=== PATIENT | female | born 1990 | race Caucasian/White ===

== ENCOUNTER 2017-03-07 15:31 | Emergency (ER) | payer SELFPAY ==
[2017-03-07 15:42] VITALS: BP 141/84
--- NOTE | 2017-03-07 16:49 | Emergency Department Report ---
ED Female HPI - General Chief complaint: Urogenital-Female Stated complaint: VAGINAL DISCOMFORT Time Seen by Provider: 03/07/17 16:48 Source: patient Mode of arrival: Ambulatory Limitations: No Limitations - History of Present Illness Initial comments: Patient reports she is having vaginal discomfort for 2-3 days. She says she has a foul-smelling odor and wants to be checked for STD. vaginal pain externally is 6 out of 10 on and off. She has concern for STD due to on safe sex. Denies abdominal or back pain. Denies any urinary burning frequency or urgency. No fever or chills or nausea or vomiting. Menstrual period was 2016. Pt has no past medical history of surgery or medical problems. MD Complaint: vaginal discharge, possible STD, other (External vaginal pain) Onset/Timin -: days(s) Location: labia Radiation: non-radiating Severity: moderate Severity scale (0 -10): 6 Quality: dull Consistency: intermittent Improves with: none Worsens with: none Are you Now?: No Last Menstrual Period: 02/21/17 EDC: 11/28/17 Associated Symptoms: vaginal discharge, other (vaginal pain). denies: vaginal bleeding, abdominal pain, nausea/vomiting, headaches, loss of appetite, dysuria , hematuria, rash, shortness of breath, syncope, weakness - Related Data Sexually active: Yes Previous Rx's Medication Instructions Recorded Last Taken Type Nitrofurantoin [place]/M-Cryst 100 mg PO Q12HR #14 capsule 03/07/17 Unknown Rx [Macrobid CAP] metroNIDAZOLE [Flagyl] 500 mg PO Q12HR #14 tab 03/07/17 Unknown Rx Allergies Allergy/AdvReac Type Severity Reaction Status Date / Time No Known Allergies Allergy Unverified 03/07/17 15:38 ED Review of Systems ROS: Stated complaint: VAGINAL DISCOMFORT Other details as noted in HPI Comment: All other systems reviewed and negative Constitutional: denies: chills, fever ENT: denies: throat pain Respiratory: no symptoms reported Cardiovascular: denies: chest pain, palpitations, dyspnea on exertion, orthopnea Gastrointestinal: denies: abdominal pain, nausea, vomiting, diarrhea Genitourinary: discharge, other (External vaginal pain). denies: urgency, dysuria, frequency, hematuria, abnormal menses, dyspareunia Musculoskeletal: denies: back pain, arthralgia Skin: denies: rash Neurological: denies: headache, weakness, numbness, paresthesias, confusion, abnormal gait, other ED Past Medical Hx - Past Medical History Previous Medical History?: No Additional medical history: Vaginal delivery x 2 - Surgical History Past Surgical History?: No - Family History Family history: no significant - Social History Smoking Status: Never Smoker Substance Use Type: Alcohol, Non Opiate Pain - Medications Home Medications: Home Medications Medication Instructions Recorded Confirmed Last Taken Type Nitrofurantoin [place]/M-Cryst 100 mg PO Q12HR #14 capsule 03/07/17 Unknown Rx [Macrobid CAP] metroNIDAZOLE [Flagyl] 500 mg PO Q12HR #14 tab 03/07/17 Unknown Rx ED Physical Exam - General Limitations: No Limitations General appearance: alert, in no apparent distress - Head Head exam: Present: atraumatic, normocephalic, normal inspection - Eye Eye exam: Present: normal appearance, PERRL, EOMI. Absent: periorbital swelling , periorbital tenderness Pupils: Present: normal accommodation - ENT ENT exam: Present: normal exam, normal orophraynx, mucous membranes moist, TM's normal bilaterally, normal external ear exam - Neck Neck exam: Present: normal inspection, full ROM. Absent: tenderness, meningismus, lymphadenopathy - Expanded Neck Exam Expanded Neck exam: Absent: tenderness, midline deformity, anterior neck swelling, tracheal deviation - Cardiovascular Cardiovascular Exam: Present: regular rate, normal rhythm, normal heart sounds - GI/Abdominal GI/Abdominal exam: Present: soft, normal bowel sounds. Absent: distended, tenderness, guarding, rebound, rigid - External exam: Present: normal external exam. Absent: erythema, swelling, lesions, lacerations, ecchymosis, bleeding Speculum exam: Present: normal speculum exam, vaginal discharge, cervical discharge. Absent: erythema, vaginal bleeding, foreign body, tissue, laceration Bi-manual exam: Present: normal bi-manual exam. Absent: cervical motion tendernes, adnexal tenderness, adnexal mass, uterine enlargement, uterine tenderness - Extremities Exam Extremities exam: Present: normal inspection, full ROM, normal capillary refill. Absent: tenderness, pedal edema, joint swelling, calf tenderness - Back Exam Back exam: Present: normal inspection, full ROM. Absent: tenderness, CVA tenderness (R), CVA tenderness (L), muscle spasm, paraspinal tenderness, vertebral tenderness, rash noted - Neurological Exam Neurological exam: Present: alert, oriented X3, normal gait, reflexes normal. Absent: motor sensory deficit - Psychiatric Psychiatric exam: Present: normal affect, normal mood - Skin Skin exam: Present: warm, dry, intact, normal color. Absent: rash ED Course Vital Signs 03/07/17 15:38 Temperature 97.9 F Pulse Rate 100 H Respiratory 20 Rate Blood Pressure 141/84 O2 Sat by Pulse 96 Oximetry - Reevaluation(s) Reevaluation #1: 03/07/17 18:27 receive Rocephin 250 mg IM and Zithromax 1 g by mouth for STD treatment gonorrhea and chlamydia. She had concerned and wanted to be treated ED Medical Decision Making - Lab Data Lab Results 03/07/17 Range/Units Unknown Urine Color Yellow (Yellow) Urine Turbidity Slightly-cloudy (Clear) Urine pH 7.0 (5.0-7.0) Ur Specific [place] 1.019 (1.003-1.030) Urine Protein <15 mg/dl (Negative) mg/dL Urine Glucose (UA) Neg (Negative) mg/dL Urine Ketones Neg (Negative) mg/dL Urine Blood Sm (Negative) Urine Nitrite Neg (Negative) Urine Bilirubin Neg (Negative) Urine Urobilinogen < 2.0 (<2.0) mg/dL Ur Leukocyte Esterase Mod (Negative) Urine WBC (Auto) 1.0 (0.0-6.0) /HPF Urine RBC (Auto) 3.0 (0.0-6.0) /HPF U Epithel Cells (Auto) 14.0 H (0-13.0) /HPF Urine Bacteria (Auto) 1+ (Negative) /HPF Urine Mucus Few /HPF Urine HCG, Qual Negative (Negative) Urine culture pending Wet Prep: Greater than 20% clue cells, bacterial vaginosis, negative Trichomonas and negative yeast. CHL pending - Medical Decision Making ED course: Do Gudino reported in external vaginal pain and vaginal discharge. She was found to have bacterial vaginosis, negative Trichomonas and negative yeast, Also urine positive for bladder infection with small amount of blood. tests negative. This was communicated to the patient. I instructed patient that gonorrhea and chlamydia tests pain about 5 days to be resulted and she is concern for STD and wants to be treated for gonorrhea and chlamydia. He was given Rocephin 250 mg IM along with Zithromax 1 g by mouth. I instructed her that she needs to practice safe sex and not to douche as this causes bacterial vaginosis. Instructed her to follow up with her [facility] in 4-5 days for Pap smear. External vaginal exam normal and internal vaginal exam normal except for vaginal discharge. Patient discharged home with prescription for Flagyl to treat bacterial vaginosis and Macrobid to treat urinary tract infection. Urine culture is pending. Was understand the diagnosis and treatment plan and discharged home to follow up with [facility]. Critical care attestation.: If time is entered above; I have spent that time in minutes in the direct care of this critically ill patient, excluding procedure time. ED Disposition Clinical Impression: BV (bacterial vaginosis), Vaginal discharge, Acute cystitis with hematuria, Concern about STD in female without diagnosis Disposition: DISCHARGED TO HOME OR SELFCARE Is pt being admited?: No Does the pt Need Aspirin: No Condition: Stable Instructions: Bacterial Vaginosis (ED), Safe Sex (ED), Sexually Transmitted Diseases (ED), Urinary Tract Infection in Women (ED) Additional Instructions: Follow-up with [facility] as instructed. Please refrain from douching. You can take probiotics to restore normal vaginal amy. Please practice safe sex Prescriptions: metroNIDAZOLE [Flagyl] 500 mg PO Q12HR #14 tab Nitrofurantoin [place]/M-Cryst [Macrobid CAP] 100 mg PO Q12HR #14 capsule Referrals: SHREYA BARROSO MD [Staff Physician] - 03/11/17 PRIMARY CARE, [Primary Care Provider] - 03/11/17 Forms: AMA Form, STI Treatment and Prevention, Work/School Release Form(ED)
[2017-03-07] MEDS ORDERED: ROCEPHIN IM ONE (18:17)
[2017-03-07] MEDS ORDERED: ZITHROMAX PO ONE (18:17)
[2017-03-07] MEDS ORDERED: XYLOCAINE 1% MPF 5 mL INFILTRATI ONE (18:17)
[2017-03-07 18:22] LABS: Bacteria,Urine 1+ /HPF (Negative); Bilirubin,Urine NEG (Negative); Blood,Urine SM (Negative); Ketones,Urine NEG (Negative); Leukocyte Esterase,Urine MOD (Negative); Mucus,Urine FEW /HPF; Nitrite,Urine NEG (Negative); Protein,Urine <15 mg/dL mg/dL (Negative); Urobilinogen,Urine < 2.0 mg/dL (<2.0)
== END 2017-03-07 18:50 | disposition home or self-care (01) ==
LOC: ED 15:31
DX: N76.0 Acute vaginitis (principal); N30.01 Acute cystitis with hematuria
CPT/HCPCS: 81001; 81025; 87086; 87210; 87591; 96372; 99284; J0696